=== PATIENT | male | born 1990 | race African-American/Black ===

== ENCOUNTER 2017-04-15 16:03 | Emergency (ER) | payer SELFPAY ==
[~2017-04-15] VITALS: Ht 177.8 cm; Wt 73.0 kg
[2017-04-15 16:15] VITALS: BP 122/75
== END 2017-04-15 19:26 | disposition left against medical advice (07) ==
LOC: ER 16:03
DX: M25.469 Effusion, unspecified knee (principal); Z53.21 Procedure and treatment not carried out due to patient leaving prior to being seen by health care provider